=== PATIENT | female | born 1980 | race Caucasian/White ===

== ENCOUNTER 2020-02-21 05:24 | Inpatient (IN) ==
[2020-02-21] MEDS ORDERED: LACTATED RINGERS 1,000 ML IV ONE (05:38)
[2020-02-21] MEDS ORDERED: LACTATED RINGERS 500 ML IV PRN (05:38)
[2020-02-21] MEDS ORDERED: ONDANSETRON 4 MG/2 ML VIAL IV PRN ×2 (05:38→08:28)
[2020-02-21] MEDS ORDERED: ONDANSETRON 4 MG/2 ML VIAL IV ONE (05:43)
[2020-02-21] MEDS ORDERED: CITRIC ACID/SODIUM CITRATE 30 ML UDCUP PO ONE (05:43)
[2020-02-21] MEDS ORDERED: hydrOXYzine HCL 25 MG/1 ML VIAL IM PRN (05:43)
[2020-02-21] MEDS ORDERED: PROMETHAZINE 25 MG/1 ML VIAL IM ONE (05:43)
[2020-02-21] MEDS ORDERED: diphenhydrAMINE 50 MG/1 ML VIAL IV PRN ×2 (05:43)
[2020-02-21] MEDS ORDERED: FAMOTIDINE 20 MG/2 ML VIAL IV ONE (05:43)
[2020-02-21] MEDS ORDERED: ePHEDrine 50 MG/ML AMP IV PRN (05:43)
[2020-02-21] MEDS ORDERED: ceFAZolin 3,000 MG in SYRINGE 1 EACH IV ONE (06:00)
[2020-02-21] MEDS ORDERED: OXYTOCIN/LR 20 UNIT/1,000 ML BAG IV SCH (06:00)
[2020-02-21] MEDS ORDERED: LACTATED RINGERS 1,000 ML IV SCH (06:00)
[2020-02-21] MEDS ORDERED: PHENYLEPHRINE 1 MG/10 ML SYRINGE IV ONE (06:39)
[2020-02-21] MEDS ORDERED: fentaNYL 100 MCG/2 ML VIAL ONE (06:39)
[2020-02-21] MEDS ORDERED: MORPHINE 10 MG/10 ML VIAL ONE (06:39)
[2020-02-21] MEDS ORDERED: BUPIVACAINE SPINAL 0.75% 2 ML AMP SPINAL ONE (06:40)
[2020-02-21 06:42] LABS: Basophils % 0.3 % (0.0-0.8); Eosinophils # 0.2 10*3/uL (0.0-0.87); Eosinophils % 1.9 % (0.00-10.9); Hematocrit 36.7 VOL% (35.7-47.0); Hemoglobin 12.1 GM/DL (12.0-16.0); Immature Granulocytes % 0.8 %; Immature Granulocytes Absolute 0.09 #; Lymphocytes # 2.5 10*3/uL (1.4-4.0); Lymphocytes % 20.9 % (21.3-54.2); Mean Corpuscular Volume 90.2 FL (87-102); Mean Platelet Volume 10.2 FL (9.6-12.0); Monocytes % 10.2 % (1.7-12.7); Neutrophils % 65.9 % (38.7-73.9); Platelet Count 343 T/CUMM (130-400); Red Blood Count 4.07 MC/CUMM (3.8-5.5); Red Cell Distribution Width 14.2 % (9.3-17.3); White Blood Count 11.7 T/CUMM (4-12)
[2020-02-21 07:01] LABS: Albumin 2.7 G/DL (3.4-5.0); Bilirubin,Total 0.4 MG/DL (0.2-1.0); Calcium 9.1 MG/DL (8.5-10.1); Osmolality,Calculated 269.1 MOS/KG (273-304); Total Protein 7.6 G/DL (6.4-8.3)
[2020-02-21] MEDS ORDERED: SODIUM CHLORIDE 0.9% 0 ML IV ONE (07:11)
[2020-02-21] MEDS ORDERED: TRANEXAMIC ACID 1,000 MG/10 ML VIAL ONE (07:11)
[2020-02-21] MEDS ORDERED: miSOPROStoL 200 MCG TABLET ONE (07:11)
[2020-02-21] MEDS ORDERED: CARBOPROST TROMETHAMINE 250 MCG/ML AMP IM ONE (07:11)
[2020-02-21] MEDS ORDERED: CLINDAMYCIN INJ 900 MG in PREMIX 1 EACH IV ONE (07:22)
[2020-02-21] MEDS ORDERED: RHO(D) IMMUNE GLOBULIN 300 MCG SYRINGE IM ONE (08:28)
[2020-02-21] MEDS ORDERED: LANOLIN 50% CREAM 0.3 OZ TUBE TOP PRN (08:28)
[2020-02-21] MEDS ORDERED: OXYTOCIN/LR 20 UNIT/1,000 ML BAG IV ONE (08:28)
[2020-02-21] MEDS ORDERED: oxyCODONE/ACETAMINOPHEN 5-325 MG TABLET PO PRN (08:28)
[2020-02-21] MEDS ORDERED: ACETAMINOPHEN 325 MG TABLET PO PRN (08:28)
[2020-02-21] MEDS ORDERED: BISACODYL 10 MG SUPP RECTAL PRN (08:28)
[2020-02-21] MEDS ORDERED: BENZOCAINE 20%/MENTHOL 0.5% SPRAY 56 GM CAN TOP PRN (08:28)
[2020-02-21] MEDS ORDERED: MEASLES/MUMPS/RUBELLA VACCINE 0.5 ML VIAL SUBCUT ONE (08:28)
[2020-02-21] MEDS ORDERED: HYDROCORTISONE 2.5% RECTAL CREAM 30 GM TUBE TOP PRN (08:28)
[2020-02-21] MEDS ORDERED: WITCH HAZEL PADS 100/JAR TOP PRN (08:28)
[2020-02-21] MEDS ORDERED: DIPH/TET/ACEL PERT BOOSTER VACCINE 0.5 ML VIAL IM ONE (08:28)
[2020-02-21] MEDS ORDERED: LIDOCAINE 2% 5 ML VIAL ONE (08:32)
[2020-02-21] MEDS ORDERED: propofoL 200 MG/20 ML VIAL IV ONE (08:32)
[2020-02-21 09:33] LABS: Apearance,Urine CLEAR (Clear); Bacteria,Urine Occasional /HPF (Few); Bilirubin,Urine Negative (Negative); Blood, Urine Negative (Negative); Glucose,Urine (UA) Negative (Negative); Ketones,Urine 5 mg/dL (Negative); Mucus,Urine Occasional /LPF (Occasional); Nitrite,Urine Negative (Negative); Protein,Urine Negative; Squamous Epithelial Cell,Urine Occasional /HPF (0-10); Urine Color Yellow (Yellow); Urine Specific Gravity 1.011 (1.001-1.035); Urine Urobilinogen < 2.0 EU/DL (0.2-1.0); WBC,Urine <1 /HPF (0-6)
[2020-02-21] MEDS: IBUPROFEN 800 MG TABLET PO PRN (15:00)
[2020-02-21] MEDS: CLINDAMYCIN INJ 900 MG in PREMIX 1 EACH IV SCH ×2 (15:21→23:25)
[2020-02-21] MEDS: DOCUSATE SODIUM 100 MG CAPSULE PO SCH ×2 (19:40→21:05)
[2020-02-21] MEDS: oxyCODONE/ACETAMINOPHEN 5-325 MG TABLET PO PRN (19:40)
[2020-02-21] MEDS ORDERED: SIMETHICONE CHEW 80 MG TABLET PO PRN (21:06)
[2020-02-22] MEDS: oxyCODONE/ACETAMINOPHEN 5-325 MG TABLET PO PRN ×3 (04:45→16:40)
[2020-02-22 06:43] LABS: Basophils % 0.4 % (0.0-0.8); Eosinophils # 0.2 10*3/uL (0.0-0.87); Eosinophils % 1.8 % (0.00-10.9); Hematocrit 30.1 VOL% (35.7-47.0); Immature Granulocytes % 0.6 %; Immature Granulocytes Absolute 0.06 #; Lymphocytes # 1.8 10*3/uL (1.4-4.0); Lymphocytes % 16.6 % (21.3-54.2); Mean Corpuscular HGB Conc 33.6 GM/DL (32-36); Mean Corpuscular Volume 88.8 FL (87-102); Mean Platelet Volume 9.9 FL (9.6-12.0); Monocytes % 10.1 % (1.7-12.7); Neutrophils % 70.5 % (38.7-73.9); Red Blood Count 3.39 MC/CUMM (3.8-5.5); Red Cell Distribution Width 14.3 % (9.3-17.3); White Blood Count 10.6 T/CUMM (4-12)
[2020-02-22 07:05] LABS: Hemoglobin 10.1 GM/DL (12.0-16.0); Platelet Count 259 T/CUMM (130-400)
[2020-02-22] MEDS: DOCUSATE SODIUM 100 MG CAPSULE PO SCH ×2 (09:11→21:19)
[2020-02-22] MEDS: IBUPROFEN 800 MG TABLET PO PRN ×2 (09:11→16:40)
[2020-02-22] MEDS: MAGNESIUM HYDROXIDE SUSP 30 ML UDCUP PO SCH (09:11)
[2020-02-23] MEDS: oxyCODONE/ACETAMINOPHEN 5-325 MG TABLET PO PRN ×2 (02:37→08:15)
[2020-02-23] MEDS: MAGNESIUM HYDROXIDE SUSP 30 ML UDCUP PO SCH ×3 (03:53→21:51)
[2020-02-23] MEDS: IBUPROFEN 800 MG TABLET PO PRN ×2 (08:15→20:16)
[2020-02-23] MEDS: DOCUSATE SODIUM 100 MG CAPSULE PO SCH ×2 (08:36→21:51)
[2020-02-24 09:41] VITALS: BP 134/82
[2020-02-24] MEDS: DOCUSATE SODIUM 100 MG CAPSULE PO SCH (16:05)
[2020-02-24] MEDS: MAGNESIUM HYDROXIDE SUSP 30 ML UDCUP PO SCH (16:05)
== END 2020-02-24 15:30 | disposition home or self-care (01) | DRG 787 ==
LOC: N.LD 05:24 → N.OB 12:35
PROVIDERS: ADMIT Specialist; ATTEND Specialist
PROC: LDCSECT (ICD-10-PCS; 2020-02-21 07:45)